=== PATIENT | female | born 1990 | race American Indian/Alaskan Native ===

== ENCOUNTER 2017-04-19 09:32 | Emergency (ER) | payer MEDICAID ==
[2017-04-19 10:11] VITALS: BP 88/54
[2017-04-19] MEDS ORDERED: NACL 0.9% 1000 ML 1,000 ML IV ONE (10:11)
[2017-04-19] MEDS ORDERED: NACL 0.9% 1000 ML 1,000 ML ONE (10:17)
--- NOTE | 2017-04-19 10:37 | Emergency Department Report ---
HPI - General Chief Complaint: Syncope Time Seen by Provider: 04/19/17 10:19 - HPI HPI: This is a 26-year-old -Malag[place] female presents to the emergency department via EMS from work with a complaint of some dizziness and falling over and hitting the side of her abdomen, all while she is about 18 weeks . The patient was at work where she is standing on her feet for a long amount of time. She then went to use the bathroom and got very dizzy and fell over and hit the right side of her abdomen on the sink. She did not pass out and denies hitting her head. EMS was called and found the patient to have a lower blood pressure than usual. She did not take anything for her symptoms prior to presentation. She denies any other past medical history. She is on vitamins. 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 Romero. No recent travel or sick contacts at home. ED Past Medical Hx - Past Medical History Previous Medical History?: Yes Hx Psychiatric Treatment: Yes (bipolar) Additional medical history: approx 18 weeks gest - Surgical History Past Surgical History?: No - Social History Smoking Status: Never Smoker Substance Use Type: None, Alcohol ED Review of Systems ROS: Stated complaint: LIGHT HEADED Other details as noted in HPI Comment: All other systems reviewed and negative Constitutional: denies: chills, fever Eyes: denies: eye pain, eye discharge, vision change ENT: denies: ear pain, throat pain Respiratory: denies: cough, shortness of breath, wheezing Cardiovascular: denies: chest pain, palpitations Gastrointestinal: abdominal pain. denies: nausea, vomiting Genitourinary: denies: urgency, dysuria, discharge Musculoskeletal: denies: back pain, arthralgia Skin: denies: rash, lesions Neurological: other (dizziness). denies: headache Physical Exam - Physical Exam Vital Signs: Vital Signs 04/19/17 10:05 Temperature 98.4 F Pulse Rate 83 Respiratory 14 Rate Blood Pressure 88/54 Blood Pressure 88/54 [Left] O2 Sat by Pulse 100 Oximetry Physical Exam: GENERAL: The patient is well-developed well-nourished. HENT: Normocephalic. Atraumatic. Patient has moist mucous membranes. EYES: Extraocular motions are intact. Pupils equal reactive to light bilaterally. No nystagmus. NECK: Supple. Trachea is midline. CHEST/LUNGS: Clear to auscultation. There is no respiratory distress noted. HEART/CARDIOVASCULAR: Regular. There is no tachycardia. There is no gallop rub or murmur. ABDOMEN: Abdomen is soft. There is some mild tenderness palpation to the right upper and lateral abdomen. Gravid uterus is palpable just below the umbilicus. Patient has normal bowel sounds. SKIN: Skin is warm and dry. NEURO: The patient is awake, alert, and oriented. The patient is cooperative. The patient has no focal neurologic deficits. The patient has normal speech. Cranial nerves II through XII grossly intact. MUSCULOSKELETAL: There is no tenderness or deformity. There is no limitation range of motion. There is no evidence of acute injury. Muscle strength 5 out of 5 upper and lower extremity bilaterally. ED Course Vital Signs 04/19/17 10:05 Temperature 98.4 F Pulse Rate 83 Respiratory 14 Rate Blood Pressure 88/54 Blood Pressure 88/54 [Left] O2 Sat by Pulse 100 Oximetry ED Medical Decision Making - Lab Data Result diagrams: 04/19/17 10:25 04/19/17 10:19 - EKG Data -: EKG Interpreted by [facility] EKG shows normal: sinus rhythm, axis, intervals, QRS complexes, ST-T waves Rate: normal - EKG Data When compared to previous EKG there are: previous EKG unavailable Interpretation: normal EKG - Radiology Data Radiology results: report reviewed Procedure(s): US OB >= 14 weeks Fetus Accession Number(s): [id number] cc: SARAI CATHERINE DO Gestation: Single Position: Cephalic Placenta: Posterior Placental Grade: 0 Heart Rate: 147 BPM Cervical length: 3.8 cm (Normal > 3 cm) It is too early for a anatomical survey BPD: 3.8 cm = 17 w 5 d HC: 13.8 cm = 17 w 2 d AC: 11.8 cm = 17 w 4 d FL: 2.3 cm = 17 w 0 d HC/AC Ratio: 1.17 Cephalic Index: 83.9 Estimated Weight: 188 grams LMP: 12/19/16 Clinical age = 17 w 2 d EDC: 09/25/17 US Gest. Age = 17 w 3 d EDC: 09/24/17 No evidence of abruption. Transcribed By: PTP Dictated By: DESTINEY EUCEDA MD Electronically Authenticated By: DESTINEY EUCEDA MD Signed Date/Time: 04/19/17 1325 Abdominal sonogram: History: Status post trauma abdominal pain. Findings: The normal aorta. Normal liver. Gallbladder wall thickness 1.8 mm. Common bile duct diameter 4 mm. No intrahepatic duct dilatation. Right kidney 10.8 x 4.3 x 4.9 cm. Cortical thickness 1.5 cm. Left kidney 12.1 x 5.4 x 5.2 cm. Cortical thickness 1.2 cm. Spleen is normal and measures 9.5 cm. Pancreas obscured by bowel gas. Impression: Essentially negative sonogram of the visualized portion the abdomen as detailed above. Transcribed By: PTP Dictated By: DESTINEY EUCEDA MD Electronically Authenticated By: DESTINEY EUCEDA MD Signed Date/Time: 04/19/17 1320 - Medical Decision Making 26-year-old female who is presents after having a episode of dizziness or lightheadedness that caused her to fall and hit her abdomen on a bathroom sink. Ultrasound shows a live intrauterine without any complications or signs of placental abnormalities. A generalized abdominal ultrasound was also done that did not show any intra-abdominal bleeding or any other acute processes. On labs, the patient has some hypokalemia with a potassium of 3.1 that was replaced with potassium chloride. Otherwise there was not any signs of infection in the blood or urine, glucose abnormalities, renal insufficiency, signs of significant dehydration and the patient has normal thyroid function. She was given 1.5 L of IV fluid resuscitation. She was reevaluated multiple times for multiple hours and says she is feeling improved. Blood pressure reached a systolic of 96 and the patient says that she has a history of some borderline low blood pressure general and the patient is a very thin individual. She was seen ambulatory in the emergency department and appeared stable on doing so. She has been encouraged to follow up with both her primary care physician and CONTRACTING EXECUTIVE. She will return to the ER with any worsening of her symptoms or any acute distress. - Differential Diagnosis , miscarriage, abdominal contusion, vertigo, orthostatic hypotensio Critical Care Time: No Critical care attestation.: If time is entered above; I have spent that time in minutes in the direct care of this critically ill patient, excluding procedure time. ED Disposition Clinical Impression: Dizziness, Hypokalemia Qualifiers: Weeks of gestation: 18 weeks Qualified Code(s): Z3A.18 - 18 weeks gestation of Abdominal pain Qualifiers: Abdominal location: unspecified location Qualified Code(s): R10.9 - Unspecified abdominal pain Disposition: TO HOME OR SELFCARE Is pt being admited?: No Condition: Stable Instructions: (ED), Abdominal Pain (ED), Lightheadedness (ED), Dizziness (ED) Additional Instructions: Please follow-up with your primary care physician as well as your CONTRACTING EXECUTIVE. Return to the emergency Department with any worsening of your symptoms or any acute distress. Referrals: LALI ROMERO [Other] - [facility] Forms: Work/School Release Form(ED) Time of Disposition: 14:58
[2017-04-19 10:51] LABS: Alanine Aminotransferase 6 units/L (7-56); Albumin 3.3 g/dL (3.9-5); Albumin/Globulin Ratio 1.1 %; Alkaline Phosphatase 49 units/L (35-129); Anion Gap 15 mmol/L; Blood Urea Nitrogen 6 mg/dL (7-17); Calcium 7.9 mg/dL (8.4-10.2); Carbon Dioxide 22 mmol/L (22-30); Chloride 101.8 mmol/L (98-107); Glucose 78 mg/dL (65-100); Potassium 3.1 mmol/L (3.6-5.0); Sodium 136 mmol/L (137-145); Total Protein 6.2 g/dL (6.3-8.2)
[2017-04-19 10:52] LABS: Basophils % (Auto) 0.3 % (0.0-1.8); Eosinophils % (Auto) 0.1 % (0.0-4.3); Hematocrit 26.2 % (30.3-42.9); Hemoglobin 8.6 gm/dl (10.1-14.3); Mean Corpuscular HGB Conc 33 % (30-34); Mean Corpuscular Hemoglobin 26 pg (28-32); Mean Corpuscular Volume 80 fl (79-97); Platelet Count 155 K/mm3 (140-440); Red Blood Count 3.27 M/mm3 (3.65-5.03); Red Cell Distribution Width 16.1 % (13.2-15.2); White Blood Count 7.3 K/mm3 (4.5-11.0)
[2017-04-19 10:55] LABS: Bacteria,Urine 1+ /HPF (Negative); Bilirubin,Urine NEG (Negative); Blood,Urine NEG (Negative); Ketones,Urine 20 mg/dL (Negative); Leukocyte Esterase,Urine NEG (Negative); Mucus,Urine 1+ /HPF; Nitrite,Urine NEG (Negative); Protein,Urine <15 mg/dL mg/dL (Negative); Urobilinogen,Urine < 2.0 mg/dL (<2.0)
[2017-04-19] MEDS ORDERED: K-DUR PO ONE (10:58)
[2017-04-19] MEDS ORDERED: MORPHINE IV ONE (11:38)
--- NOTE | 2017-04-19 13:24 | Ultrasound Report ---
Abdominal sonogram: History: Status post trauma abdominal pain. Findings: The normal aorta. Normal liver. Gallbladder wall thickness 1.8 mm. Common bile duct diameter 4 mm. No intrahepatic duct dilatation. Right kidney 10.8 x 4.3 x 4.9 cm. Cortical thickness 1.5 cm. Left kidney 12.1 x 5.4 x 5.2 cm. Cortical thickness 1.2 cm. Spleen is normal and measures 9.5 cm. Pancreas obscured by bowel gas. Impression: Essentially negative sonogram of the visualized portion the abdomen as detailed above.
--- NOTE | 2017-04-19 13:29 | Ultrasound Report ---
Gestation: Single Position: Cephalic Placenta: Posterior Placental Grade: 0 Heart Rate: 147 BPM Cervical length: 3.8 cm (Normal > 3 cm) It is too early for a anatomical survey BPD: 3.8 cm = 17 w 5 d HC: 13.8 cm = 17 w 2 d AC: 11.8 cm = 17 w 4 d FL: 2.3 cm = 17 w 0 d HC/AC Ratio: 1.17 Cephalic Index: 83.9 Estimated Weight: 188 grams LMP: 12/19/16 Clinical age = 17 w 2 d EDC: 09/25/17 US Gest. Age = 17 w 3 d EDC: 09/24/17 No evidence of abruption.
[2017-04-19] MEDS ORDERED: NACL 0.9% 500 ML 500 ML IV ONE (14:07)
== END 2017-04-19 15:38 | disposition home or self-care (01) ==
LOC: ED 09:32
DX: O26.892 Other specified pregnancy related conditions, second trimester (principal); R42 Dizziness and giddiness; E87.6 Hypokalemia; Z3A.18 18 weeks gestation of pregnancy; F31.9 Bipolar disorder, unspecified
CPT/HCPCS: 36415; 76700; 76805; 80053; 81001; 84443; 84703; 85025; 93005; 93010; 96360; 99284; J7030; J7040

== ENCOUNTER 2017-07-08 11:02 | Outpatient (CLI) | payer MEDICAID ==
[2017-07-08] MEDS ORDERED: LACTATED RINGERS 500 ML IV ONE (11:28)
[2017-07-08 11:47] VITALS: BP 91/54
--- NOTE | 2017-07-08 14:33 | Ultrasound Report ---
ULTRASOUND BIOPHYSICAL PROFILE: History: well being Technique: Transabdominal ultrasound with Doppler interrogation. 2 - breathing movements 2 - movements 2 - posture and tone 2 - Qualitative amniotic fluid volume 8 - TOTAL SCORE OF POSSIBLE 8 Heart Rate (bpm) 101
--- NOTE | 2017-07-08 15:04 | Ultrasound Report ---
OB ULTRASOUND History well being. Technique: Transabdominal ultrasound with Doppler interrogation. Gestation: Single Position: Cephalic Amniotic Fluid: Normal LITTLE = 16.3 cm Placenta: Posterior, fundal Placental Grade: 1 Heart Rate: 100 BPM Cervical length: 3.4 cm (Normal > 3 cm) NEUROANATOMY VISUALIZED: Choroid Plexus Cisterna Magnum Cerebellum Lateral Ventricle ANATOMY VISUALIZED: Stomach Kidneys Bladder Diaphragm 4 Chamber Heart Heart 3 Vessel Cord Abd. Cord Insert SPINE VISUALIZED: Longitudinal Transverse BPD: 7.3 cm = 29 w 1 d HC: 27.2 cm = 29 w 5 d AC: 24.7 cm = 28 w 6 d FL: 5.4 cm = 28 w 5 d HC/AC Ratio: 1.1 Cephalic Index: 84.6 Estimated Weight: 1312 grams. 46th percentile. Clinical age = 28 w 5 d EDC: 09/25/17 US Gest. Age = 29 w in d EDC: 09/22/17 IMPRESSION: Viable, single intrauterine as described.
== END 2017-07-08 14:20 | disposition home or self-care (01) ==
LOC: TRG 11:02
PROVIDERS: ATTEND Obstetrics & Gynecology
DX: O47.03 False labor before 37 completed weeks of gestation, third trimester (principal); Z3A.29 29 weeks gestation of pregnancy
CPT/HCPCS: 59025; 76805; 76819

== ENCOUNTER 2017-08-13 08:29 | Outpatient (CLI) | payer MEDICAID ==
[2017-08-13] MEDS ORDERED: LACTATED RINGERS 500 ML IV ONE (09:35)
[2017-08-13] MEDS ORDERED: BRETHINE SUB-Q SCH (10:00)
[2017-08-13] MEDS ORDERED: LACTATED RINGERS 1,000 ML IV SCH (10:00)
[2017-08-13 12:50] VITALS: BP 91/55
== END 2017-08-13 13:18 | disposition home or self-care (01) ==
LOC: TRG 08:29
PROVIDERS: ATTEND Obstetrics & Gynecology
DX: O47.03 False labor before 37 completed weeks of gestation, third trimester (principal); Z3A.33 33 weeks gestation of pregnancy
CPT/HCPCS: 59025; 96360; 96361; 96372; J3105; J7120

== ENCOUNTER 2017-09-17 21:45 | Outpatient (CLI) | payer MEDICAID ==
[2017-09-17] MEDS ORDERED: VISTARIL PO PRN (22:34)
[2017-09-17 23:13] VITALS: BP 128/76
== END 2017-09-17 22:45 | disposition home or self-care (01) ==
LOC: TRG 21:45
PROVIDERS: ATTEND Obstetrics & Gynecology
DX: O47.1 False labor at or after 37 completed weeks of gestation (principal); Z3A.38 38 weeks gestation of pregnancy
CPT/HCPCS: 59025; Q0177

== ENCOUNTER 2017-09-19 18:20 | Outpatient (CLI) | payer MEDICAID ==
[2017-09-19 19:42] VITALS: BP 120/80
[2017-09-19] MEDS ORDERED: VISTARIL PO PRN (20:00)
== END 2017-09-19 20:10 | disposition home or self-care (01) ==
LOC: TRG 18:20
PROVIDERS: ATTEND Obstetrics & Gynecology
DX: O47.1 False labor at or after 37 completed weeks of gestation (principal); Z3A.39 39 weeks gestation of pregnancy
CPT/HCPCS: 59025; Q0177

== ENCOUNTER 2017-09-21 09:13 | Outpatient (CLI) | payer MEDICAID ==
[2017-09-21 10:00] VITALS: BP 96/62
[2017-09-21] MEDS ORDERED: VISTARIL PO ONE (10:19)
== END 2017-09-21 11:00 | disposition home or self-care (01) ==
LOC: TRG 09:13
PROVIDERS: ATTEND Obstetrics & Gynecology
DX: O47.1 False labor at or after 37 completed weeks of gestation (principal); Z3A.39 39 weeks gestation of pregnancy
CPT/HCPCS: 59025

== ENCOUNTER 2017-09-29 09:58 | Inpatient (IN) | payer MEDICAID ==
[2017-09-29] MEDS ORDERED: ePHEDrine SULFATE IV PRN ×2 (10:12→11:28)
[2017-09-29] MEDS ORDERED: BRETHINE SUB-Q PRN (10:12)
[2017-09-29] MEDS ORDERED: SUBLIMAZE IV PRN ×2 (10:12→11:00)
[2017-09-29] MEDS ORDERED: ZOFRAN IV PRN (10:12)
[2017-09-29] MEDS ORDERED: MINERAL OIL PO PRN (10:12)
[2017-09-29] MEDS ORDERED: GUAIFENESIN DM SYRUP PO PRN (10:14)
[2017-09-29] MEDS: LACTATED RINGERS 1,000 ML IV SCH ×2 (10:29→13:34)
--- NOTE | 2017-09-29 10:47 | History and Physical Report ---
History of Present Illness Date of examination: 09/29/17 (pt presents by EMS with gross ROM this AM) Date of admission: 09/29/17 10:00 Chief complaint: srom clear fluid this AM EMS called History of present illness: EDC Confirmation: 09/25/2017 Gestational Age: 5 6/7 weeks Past History : 5 Term Births: 3 Premature Births: 0 Living Children: 3 Para: 3 Mult. Births: 0 Prev : 0 Prev. attempt? 0 Aborta: 1 Elect. Ab: 0 Spont. Ab: 1 Ectopics: 0 # 1 Delivery date: 2011 Weeks Gestation: 39 labor: no Delivery type: Anesthesia type: epidural [place] [facility] [place] Sex: Male weight: 5#11 Comments: elevated b/p # 2 Delivery date: 2012 Weeks Gestation: 39 labor: no Delivery type: Anesthesia type: epidural Delivery location: [facility] [place] Sex: Male weight: 6#11 Comments: no complications # 3 Delivery date: 10/2016 Weeks Gestation: 40 labor: no Delivery type: Anesthesia type: none [place] [facility] [place]: Male weight: 6#10 Comments: no complications Past Medical History: Bipolar Disease - sees practive on [address] (doesn't know and names), on Zoloft, trazodone and seroquel prior to Past Surgical History: Negative Past Surgical History Past Medical History 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 of genital herpes: no Partner hx. of genital herpes: no Rash, Viral, or Febrile illness since last LMP? no Varicella/Chicken Pox Status: Previous Disease Genetic History Congenital Heart Defect: Mom: no Dad: no Nito Disease: Mom: no Dad: no Thalassemia Mom: no Dad: no Neural Tube Defect Mom: no Dad: no Down's Syndrome Mom: no Dad: no Rob-Sachs Mom: no Dad: no Sickle Cell Disease/Trait Mom: no Dad: no Hemophilia Mom: no Dad: no Muscular Dystrophy Mom: no Dad: no Cystic Fibrosis Mom: no Dad: no [place] Chorea Mom: no Dad: no Mental Retardation Mom: no Dad: no Fragile X Mom: no Dad: no Other Genetic/Chromosomal Disorder Mom: no Dad: no Child w/other defect Mom: no Dad: no Enviromental Exposures Xray Exposure: no Medication, drug, or alcohol use since LMP: yes Chemical/Other Exposure: no Exposure to Cat Liter: no Hx of Parvovirus (Fifth Disease): no Occupational Exposure to Children: none Comments: Zoloft, trazodone, seroquel Active Medications (reviewed today): None Current Allergies (reviewed today): No known allergies Laboratory Results Routine Urinalysis Leukocytes: negative Nitrite: negative Urobilinogen: negative Protein: Negative Blood: negative Ketone: negative Bilirubin: negative Glucose: Negative Urine HCG: positive Review of Systems General Denies fever, chills, sweats, anorexia, fatigue, weakness, malaise, weight loss and sleep disorder. Denies nausea, vomiting, headache, swelling of legs, abdominal pain, vaginal discharge, vaginal bleeding and contractions. Denies vaginal discharge, incontinence, dysuria, hematuria, urinary frequency, amenorrhea, menorrhagia, abnormal vaginal bleeding, pelvic pain, genital sores, decreased libido, painful periods, painful sex, urinary urgency, hot flashes, vaginal dryness, vaginal itching and vaginal odor. CV Denies chest pains, palpitations, syncope, dyspnea on exertion, orthopnea, PND and peripheral edema. Resp Denies cough, dyspnea at rest, excessive sputum, hemoptysis, wheezing and pleurisy. GI Denies nausea, vomiting, diarrhea, constipation, change in bowel habits, abdominal pain, melena, hematochezia, jaundice, gas/bloating, indigestion/ heartburn, dysphagia and odynophagia. Endo Denies cold intolerance, heat intolerance, polydipsia, polyphagia, polyuria and unusual weight change. Breast Denies left breast lump, right breast lump, nipple discharge, bloody discharge from nipple, breast pain, abnormal mammogram and breast enlargement. MS Denies back pain, joint pain, joint swelling, muscle cramps, muscle weakness, stiffness, arthritis, sciatica, restless legs, leg pain at night and leg pain with exertion. Derm Denies rash, itching, dryness and suspicious lesions. Neuro Denies paralysis, paresthesias, headache, seizures, tremors, vertigo, transient blindness, frequent falls, frequent headaches and difficulty walking. Psych Denies depression, anxiety, irritability and mood swings. Eyes Denies blurring, diplopia, irritation, discharge, vision loss, eye pain and photophobia. ENT Denies earache, ear discharge, tinnitus, decreased hearing, nasal congestion, nosebleeds, sore throat and hoarseness. Allergy Denies urticaria, allergic rash, hay fever and recurrent infections. Heme Denies abnormal bruising, bleeding and enlarged lymph nodes. PHYSICAL EXAM HEENT: PERRLA, normal conjunctiva, external nose and nasal mucosa normal, oropharynx clear Neck/Thyroid: supple, thyroid normal Skin no significant abnormal lesions or rashes Chest: respiratory effort normal, clear to auscultation Breasts: normal without skin changes or masses CV: regular, normal S1-S2, no murmur, no rub, no gallop Abdomen: normal bowel sounds, soft, nontender, no HSM Musculoskeletal: grossly normal ROM in joints, no joint tenderness or muscle weakness Neuro: grossly normal DTRs, sensation, strength, cranial nerves Extremities: no clubbing, cyanosis, or edema PRACTICE CONSULTANT Exams Vulva/Vagina: No lesions, normal BUS, normal rugae Cervix: No lesions; no cervical motion tenderness Uterus: normal size and position, midline, mobile Fundal Ht: sono FHT: - Adnexae: no masses or tenderness Rectovaginal: no masses or tenderness Past History - Obstetrical History Expected Date of Delivery: 09/25/17 Actual Gestation: 40 Week(s) 4 Day(s) : 5 Para: 3 Hx # Term Pregnancies: 3 Number of Pregnancies: 0 Spontaneous Abortions: 1 Induced : 0 Number of Living Children: 3 Medications and Allergies Allergies Allergy/AdvReac Type Severity Reaction Status Date / Time No Known Allergies Allergy Verified 07/08/17 11:27 Home Medications Medication Instructions Recorded Confirmed Last Taken Type No Known Home Medications [No 07/08/17 08/13/17 Unknown History Reported Home Medications] Active Meds: Active Medications Ephedrine Sulfate (Ephedrine Sulfate) 10 mg IV Q2M PRN PRN Reason: Hypotension Fentanyl (Sublimaze) 100 mcg IV Q2H PRN PRN Reason: Labor Pain Guaifenesin (Guaifenesin Dm Syrup) 20 ml PO Q4H PRN PRN Reason: Cough Ampicillin Sodium (Polycillin/Ns 1 Gm/50 Ml) 1 gm in 50 mls @ 100 mls/hr IV Q4H BETHEL PRN Reason: Protocol Ampicillin Sodium (Polycillin/Ns 2 Gm/100 Ml) 2 gm in 100 mls @ 100 mls/hr IV ONCE ONE PRN Reason: Protocol Stop: 09/29/17 11:59 Last Admin: 09/29/17 10:30 Dose: 100 mls/hr Lactated Ringer's (Lactated Ringers) 1,000 mls @ 125 mls/hr IV DIRECT BETHEL Last Admin: 09/29/17 10:29 Dose: 125 mls/hr Oxytocin/Sodium Chloride (Pitocin/Ns 20 Unit/1000ml Drip) 20 units in 1,000 mls @ 125 mls/hr IV DIRECT BETHEL Oxytocin/Sodium Chloride (Pitocin/Ns 30 Unit/500ml) 30 units in 500 mls @ 4 mls /hr IV TITR BETHEL PRN Reason: Protocol Lidocaine (Xylocaine 2%) 20 ml INFILTRATI ONCE ONE Stop: 09/29/17 11:01 Mineral Oil (Mineral Oil) 30 ml PO QHS PRN PRN Reason: Constipation Ondansetron HCl (Zofran) 4 mg IV Q8H PRN PRN Reason: Nausea And Vomiting Terbutaline Sulfate (Brethine) 0.25 mg SUB-Q ONCE PRN PRN Reason: Hyperstimulation/Hypertonicity - Physical Exam Breasts: Positive: deferred Cardiovascular: Regular rate, Normal S1, Normal S2 Lungs: Positive: Clear to auscultation, Normal air movement Abdomen: Positive: normal appearance, soft, normal bowel sounds. Negative: distention, tenderness Genitourinary (Female): Positive: normal external genitalia, normal perenium Vulva: both: normal Vagina: Positive: normal moisture. Negative: discharge Cervix: Negative: lesion, discharge Uterus: Positive: normal size, normal contour Adnexa: both: normal Anus/Rectum: Positive: normal perianal skin, heme negative. Negative: rectal mass, hemorrhoids Extremities: Positive: normal Deep Tendon Reflex Grade: Normal +2 - Obstetrical FHR: category 1 Uterine Contraction Monitor Mode: External Cervical Dilatation: 6 (clear fluid) Cervical Effacement Percentage: 70 station: -1 Uterine Contraction Pattern: Regular Uterine Tone Measurement Phase: Resting Uterine Contraction Intensity: Moderate Results All other labs normal. Strep Gp B SALOMON [A] Positive HBsAg Screen Negative Negative *1 Rubella Antibodies, IgG 2.43 index Immune >0.99 *2 Non-immune <0.90 Equivocal 0.90 - 0.99 Immune >0.99 ABO Grouping B *3 Rh Factor Positive *4 Please note: Prior records for this patient's ABO / Rh type are not available for additional verification. Antibody Screen Negative Negative *5 RPR Non Reactive Non Reactive *6 WBC 5.9 x10E3/uL 3.4-10.8 *7 RBC 3.96 x10E6/uL 3.77-5.28 *8 Hemoglobin [L] 10.6 g/dL 11.1-15.9 *9 Hematocrit [L] 33.5 % 34.0-46.6 *10 MCV 85 fL 79-97 *11 MCH 26.8 pg 26.6-33.0 *12 MCHC 31.6 g/dL 31.5-35.7 *13 RDW 15.1 % 12.3-15.4 *14 Platelets 199 x10E3/uL 150-379 *15 Neutrophils 65 % *16 Lymphs 25 % *17 Monocytes 9 % *18 Eos 1 % *19 Basos 0 % *20 ! Immature Cells <No Reported Value> *21 Neutrophils (Absolute) 3.8 x10E3/uL 1.4-7.0 *22 Lymphs (Absolute) 1.5 x10E3/uL 0.7-3.1 *23 Monocytes(Absolute) 0.5 x10E3/uL 0.1-0.9 *24 Eos (Absolute) 0.0 x10E3/uL 0.0-0.4 *25 Baso (Absolute) 0.0 x10E3/uL 0.0-0.2 *26 ! Immature Granulocytes 0 % *27 ! Immature Grans (Abs) 0.0 x10E3/uL 0.0-0.1 *28 ! NRBC <No Reported Value> *29 Hematology Comments: <No Reported Value> *30 Tests: (2) SMN1 Copy Number Analysis ([id number]) ! Genetic Counselor: Not applicable *31 ! Client Specimen ID: Not applicable *32 ! Specimen Type: SPRCS *33 Peripheral Blood ! Specimen(s) Received: SPRCS *34 1 - Yellow (ACD) 10 ml round bottom tube(s) ! Clinical Data: SPRCS *35 Not Provided ! Ethnicity: SPRCS *36 Not Provided ! SMA Results: SPRCS *37 SMN1 copy number: 2 (Reduced Carrier Risk) ! SMA Interpretation: Note *38 This individual has an SMN1 copy number of two. This result reduces but does not eliminate the risk to be a carrier of SMA. Information regarding clinical indication may provide a more detailed interpretation. Tests: (3) Cystic Fibrosis Profile (135657) ! CF, Screen Comment: *45 RESULTS: Negative for 32 mutations analyzed Tests: (4) HB Solu + Rflx Frac (585078) Hemoglobin (Hgb) Solubility Negative Negative *47 Tests: (5) Panel 194971 (506113) HIV Screen 4th Generation wRfx Non Reactive Non Reactive *48 Tests: (6) HCV Ab w/Rflx to Verification ([id number]) ! HCV Ab 0.2 s/co ratio 0.0-0.9 *49 Tests: (7) Comment: ([id number]) ! Comment: SPRCS *50 Non reactive HCV antibody screen is consistent with no HCV infection, unless recent infection is suspected or other evidence exists to indicate HCV infection. Tests: (8) Urine Culture, Routine ([id number]) Urine Culture, Routine Final report *51 Tests: (9) Result ([id number]) ! Result 1 "Result Below..." *52 RESULT: Lactobacillus species 25,000-50,000 colony forming units per mL Susceptibility not normally performed on this organism. Assessment and Plan - Patient Problems (1) Group B Streptococcus carrier state affecting Onset Date: ~09/29/17 Current Visit: Yes Status: Acute Plan to address problem: Ampicillin started per protocol (2) Spontaneous rupture of membranes Current Visit: Yes Status: Acute Plan to address problem: 26yo @ 40 wks with SROM 6cm dilated on arrival. GBS+ Orders in EMR Anticipate delivery
[2017-09-29] MEDS ORDERED: PITOCin/NS 30 UNIT/500ML 30 UNITS/500 ML BAG IV SCH (11:00)
[2017-09-29] MEDS ORDERED: PITOCin/NS 20 UNIT/1000ML DRIP 20 UNITS/1,000 ML BAG IV SCH (11:00)
[2017-09-29] MEDS ORDERED: POLYCILLIN/NS 2 GM/100 ML 2 GM/100 ML BAG IV ONE (11:00)
[2017-09-29] MEDS ORDERED: XYLOCAINE 2% INFILTRATI ONE (11:00)
[2017-09-29 11:04] LABS: Hematocrit 20.7 % (30.3-42.9); Hemoglobin 6.3 gm/dl (10.1-14.3); Mean Corpuscular HGB Conc 31 % (30-34); Platelet Count 131 K/mm3 (140-440); Red Blood Count 2.98 M/mm3 (3.65-5.03); Red Cell Distribution Width 17.6 % (13.2-15.2)
[2017-09-29 11:09] LABS: Mean Corpuscular Hemoglobin 21 pg (28-32); Mean Corpuscular Volume 69 fl (79-97)
[2017-09-29] MEDS ORDERED: NARCAN 2 MG/2 ML IV PRN (11:28)
[2017-09-29] MEDS ORDERED: fentaNYL-BUPIV 2 MCG/ML-0.125% 200 MCG/100 ML BAG EPIDURAL SCH (12:00)
--- NOTE | 2017-09-29 12:32 | Progress Note ---
Assessment and Plan Comfortable with epidural SVE 7,100,-1 Re-eval as needed - Patient Problems (1) Group B Streptococcus carrier state affecting Onset Date: ~09/29/17 Current Visit: Yes Status: Acute (2) Spontaneous rupture of membranes Current Visit: Yes Status: Acute Subjective - Subjective Date of service: 09/29/17 (comfortable with epidural) Principal diagnosis: IUP @ 40 weeks with SROM Interval history: EDC Confirmation: 09/25/2017 Gestational Age: 5 6/7 weeks Past History : 5 Term Births: 3 Premature Births: 0 Living Children: 3 Para: 3 Mult. Births: 0 Prev : 0 Prev. attempt? 0 Aborta: 1 Elect. Ab: 0 Spont. Ab: 1 Ectopics: 0 # 1 Delivery date: 2011 Weeks Gestation: 39 labor: no Delivery type: Anesthesia type: epidural Delivery location: [facility] [place] Infant Sex: Male weight: 5#11 Comments: elevated b/p # 2 Delivery date: 2012 Weeks Gestation: 39 labor: no Delivery type: Anesthesia type: epidural Delivery location: [facility] [place] Infant Sex: Male weight: 6#11 Comments: no complications # 3 Delivery date: 10/2016 Weeks Gestation: 40 labor: no Delivery type: Anesthesia type: none Delivery location: [facility] [place] Infant Sex: Male weight: 6#10 Comments: no complications Past Medical History: Bipolar Disease - sees practive on [address] (doesn't know and names), on Zoloft, trazodone and seroquel prior to Past Surgical History: Negative Past Surgical History Past Medical History 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 of genital herpes: no Partner hx. of genital herpes: no Rash, Viral, or Febrile illness since last LMP? no Varicella/Chicken Pox Status: Previous Disease Genetic History Congenital Heart Defect: Mom: no Dad: no Nito Disease: Mom: no Dad: no Thalassemia Mom: no Dad: no Neural Tube Defect Mom: no Dad: no Down's Syndrome Mom: no Dad: no Rob-Sachs Mom: no Dad: no Sickle Cell Disease/Trait Mom: no Dad: no Hemophilia Mom: no Dad: no Muscular Dystrophy Mom: no Dad: no Cystic Fibrosis Mom: no Dad: no [place] Chorea Mom: no Dad: no Mental Retardation Mom: no Dad: no Fragile X Mom: no Dad: no Other Genetic/Chromosomal Disorder Mom: no Dad: no Child w/other defect Mom: no Dad: no Enviromental Exposures Xray Exposure: no Medication, drug, or alcohol use since LMP: yes Chemical/Other Exposure: no Exposure to Cat Liter: no Hx of Parvovirus (Fifth Disease): no Occupational Exposure to Children: none Comments: Zoloft, trazodone, seroquel Active Medications (reviewed today): None Current Allergies (reviewed today): No known allergies Laboratory Results Routine Urinalysis Leukocytes: negative Nitrite: negative Urobilinogen: negative Protein: Negative Blood: negative Ketone: negative Bilirubin: negative Glucose: Negative Urine HCG: positive Review of Systems General Denies fever, chills, sweats, anorexia, fatigue, weakness, malaise, weight loss and sleep disorder. Denies nausea, vomiting, headache, swelling of legs, abdominal pain, vaginal discharge, vaginal bleeding and contractions. Denies vaginal discharge, incontinence, dysuria, hematuria, urinary frequency, amenorrhea, menorrhagia, abnormal vaginal bleeding, pelvic pain, genital sores, decreased libido, painful periods, painful sex, urinary urgency, hot flashes, vaginal dryness, vaginal itching and vaginal odor. CV Denies chest pains, palpitations, syncope, dyspnea on exertion, orthopnea, PND and peripheral edema. Resp Denies cough, dyspnea at rest, excessive sputum, hemoptysis, wheezing and pleurisy. GI Denies nausea, vomiting, diarrhea, constipation, change in bowel habits, abdominal pain, melena, hematochezia, jaundice, gas/bloating, indigestion/ heartburn, dysphagia and odynophagia. Endo Denies cold intolerance, heat intolerance, polydipsia, polyphagia, polyuria and unusual weight change. Breast Denies left breast lump, right breast lump, nipple discharge, bloody discharge from nipple, breast pain, abnormal mammogram and breast enlargement. MS Denies back pain, joint pain, joint swelling, muscle cramps, muscle weakness, stiffness, arthritis, sciatica, restless legs, leg pain at night and leg pain with exertion. Derm Denies rash, itching, dryness and suspicious lesions. Neuro Denies paralysis, paresthesias, headache, seizures, tremors, vertigo, transient blindness, frequent falls, frequent headaches and difficulty walking. Psych Denies depression, anxiety, irritability and mood swings. Eyes Denies blurring, diplopia, irritation, discharge, vision loss, eye pain and photophobia. ENT Denies earache, ear discharge, tinnitus, decreased hearing, nasal congestion, nosebleeds, sore throat and hoarseness. Allergy Denies urticaria, allergic rash, hay fever and recurrent infections. Heme Denies abnormal bruising, bleeding and enlarged lymph nodes. 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 Vulva/Vagina: No lesions, normal BUS, normal rugae Cervix: No lesions; no cervical motion tenderness Uterus: normal size and position, midline, mobile Fundal Ht: sono FHT: - Adnexae: no masses or tenderness Rectovaginal: no masses or tenderness Patient reports: movement normal Objective - Vital Signs Vital Signs: Vital Signs - 12hr 09/29/17 09/29/17 09/29/17 10:58 11:14 11:28 Pulse Rate 92 H 84 90 Blood Pressure 103/76 112/77 122/81 O2 Sat by Pulse Oximetry 09/29/17 09/29/17 09/29/17 11:44 11:45 11:50 Pulse Rate 101 H 89 97 H Blood Pressure 115/70 O2 Sat by Pulse 99 99 Oximetry 09/29/17 09/29/17 09/29/17 11:55 11:59 12:00 Pulse Rate 83 102 H 99 H Blood Pressure 124/81 O2 Sat by Pulse 99 99 Oximetry 09/29/17 09/29/17 09/29/17 12:05 12:07 12:09 Pulse Rate 115 H 105 H 112 H Blood Pressure 117/71 110/67 109/65 O2 Sat by Pulse 96 Oximetry 09/29/17 09/29/17 09/29/17 12:10 12:11 12:13 Pulse Rate 122 H 96 H 99 H Blood Pressure 106/63 106/64 O2 Sat by Pulse 98 Oximetry 09/29/17 09/29/17 09/29/17 12:15 12:17 12:19 Pulse Rate 96 H 89 84 Blood Pressure 103/64 102/63 106/68 O2 Sat by Pulse 98 Oximetry 09/29/17 09/29/17 09/29/17 12:20 12:21 12:23 Pulse Rate 91 H 80 89 Blood Pressure 108/70 103/68 O2 Sat by Pulse 98 Oximetry 09/29/17 09/29/17 09/29/17 12:25 12:28 12:29 Pulse Rate 85 88 83 Blood Pressure 92/57 114/71 105/72 O2 Sat by Pulse 100 Oximetry 09/29/17 09/29/17 12:30 12:31 Pulse Rate 82 83 Blood Pressure 96/56 O2 Sat by Pulse 97 Oximetry - Exam Breasts: deferred Cardiovascular: Regular rate Lungs: Clear to auscultation Abdomen: Present: normal appearance, normal bowel sounds Uterus: Present: normal FHR: category 1 Uterine Contraction Monitor Mode: External Cervical Dilatation: 7 Cervical Effacement Percentage: 100 station: -1 Uterine Contraction Pattern: Irregular Uterine Tone Measurement Phase: Resting Uterine Contraction Intensity: Moderate Extremities: normal Deep Tendon Reflex Grade: Normal +2 - Labs Labs: Abnormal Labs 09/29/17 10:40 RBC 2.98 L Hgb 6.3 L Hct 20.7 L MCV 69 L MCH 21 L RDW 17.6 H Plt Count 131 L Laboratory Results - last 24 hr 09/29/17 09/29/17 09/29/17 10:20 10:40 10:40 WBC 8.1 RBC 2.98 L Hgb 6.3 L Hct 20.7 L MCV 69 L MCH 21 L MCHC 31 RDW 17.6 H Plt Count 131 L RPR Nonreactive Blood Type B POSITIVE Antibody Screen Negative
[2017-09-29] MEDS: AMPICILLIN/NS 1 GM/50 ML 1 GM/50 ML BAG IV SCH (13:53)
--- NOTE | 2017-09-29 13:58 | Progress Note ---
Assessment and Plan Pt c/o pain Epidural bolused SVE 9,100,-1 Pit off, fluid bolus, position chg, O2 via face mask Re-eval as needed Anticipate delivery - Patient Problems (1) Group B Streptococcus carrier state affecting Onset Date: ~09/29/17 Current Visit: Yes Status: Acute (2) Spontaneous rupture of membranes Current Visit: Yes Status: Acute Subjective - Subjective Date of service: 09/29/17 (deep variables noted Corrected with position chgand O2 via mask) Principal diagnosis: IUP @ 40 weeks with SROM Interval history: EDC Confirmation: 09/25/2017 Gestational Age: 5 6/7 weeks Past History : 5 Term Births: 3 Premature Births: 0 Living Children: 3 Para: 3 Mult. Births: 0 Prev : 0 Prev. attempt? 0 Aborta: 1 Elect. Ab: 0 Spont. Ab: 1 Ectopics: 0 # 1 Delivery date: 2011 Weeks Gestation: 39 labor: no Delivery type: Anesthesia type: epidural Delivery location: [facility] [place] Sex: Male weight: 5#11 Comments: elevated b/p # 2 Delivery date: 2012 Weeks Gestation: 39 labor: no Delivery type: Anesthesia type: epidural [place] [facility] [place] [facility] [place] Sex: Male weight: 6#11 Comments: no complications # 3 Delivery date: 10/2016 Weeks Gestation: 40 labor: no Delivery type: Anesthesia type: none Delivery location: [facility] [place] Sex: Male weight: 6#10 Comments: no complications Past Medical History: Bipolar Disease - sees practive on [address] (doesn't know and names), on Zoloft, trazodone and seroquel prior to Past Surgical History: Negative Past Surgical History Past Medical History 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 of genital herpes: no Partner hx. of genital herpes: no Rash, Viral, or Febrile illness since last LMP? no Varicella/Chicken Pox Status: Previous Disease Genetic History Congenital Heart Defect: Mom: no Dad: no Nito Disease: Mom: no Dad: no Thalassemia Mom: no Dad: no Neural Tube Defect Mom: no Dad: no Down's Syndrome Mom: no Dad: no Rob-Sachs Mom: no Dad: no Sickle Cell Disease/Trait Mom: no Dad: no Hemophilia Mom: no Dad: no Muscular Dystrophy Mom: no Dad: no Cystic Fibrosis Mom: no Dad: no Esmeralda Chorea Mom: no Dad: no Mental Retardation Mom: no Dad: no Fragile X Mom: no Dad: no Other Genetic/Chromosomal Disorder Mom: no Dad: no Child w/other defect Mom: no Dad: no Enviromental Exposures Xray Exposure: no Medication, drug, or alcohol use since LMP: yes Chemical/Other Exposure: no Exposure to Cat Liter: no Hx of Parvovirus (Fifth Disease): no Occupational Exposure to Children: none Comments: Zoloft, trazodone, seroquel Active Medications (reviewed today): None Current Allergies (reviewed today): No known allergies Laboratory Results Routine Urinalysis Leukocytes: negative Nitrite: negative Urobilinogen: negative Protein: Negative Blood: negative Ketone: negative Bilirubin: negative Glucose: Negative Urine HCG: positive Review of Systems General Denies fever, chills, sweats, anorexia, fatigue, weakness, malaise, weight loss and sleep disorder. Denies nausea, vomiting, headache, swelling of legs, abdominal pain, vaginal discharge, vaginal bleeding and contractions. Denies vaginal discharge, incontinence, dysuria, hematuria, urinary frequency, amenorrhea, menorrhagia, abnormal vaginal bleeding, pelvic pain, genital sores, decreased libido, painful periods, painful sex, urinary urgency, hot flashes, vaginal dryness, vaginal itching and vaginal odor. CV Denies chest pains, palpitations, syncope, dyspnea on exertion, orthopnea, PND and peripheral edema. Resp Denies cough, dyspnea at rest, excessive sputum, hemoptysis, wheezing and pleurisy. GI Denies nausea, vomiting, diarrhea, constipation, change in bowel habits, abdominal pain, melena, hematochezia, jaundice, gas/bloating, indigestion/ heartburn, dysphagia and odynophagia. Endo Denies cold intolerance, heat intolerance, polydipsia, polyphagia, polyuria and unusual weight change. Breast Denies left breast lump, right breast lump, nipple discharge, bloody discharge from nipple, breast pain, abnormal mammogram and breast enlargement. MS Denies back pain, joint pain, joint swelling, muscle cramps, muscle weakness, stiffness, arthritis, sciatica, restless legs, leg pain at night and leg pain with exertion. Derm Denies rash, itching, dryness and suspicious lesions. Neuro Denies paralysis, paresthesias, headache, seizures, tremors, vertigo, transient blindness, frequent falls, frequent headaches and difficulty walking. Psych Denies depression, anxiety, irritability and mood swings. Eyes Denies blurring, diplopia, irritation, discharge, vision loss, eye pain and photophobia. ENT Denies earache, ear discharge, tinnitus, decreased hearing, nasal congestion, nosebleeds, sore throat and hoarseness. Allergy Denies urticaria, allergic rash, hay fever and recurrent infections. Heme Denies abnormal bruising, bleeding and enlarged lymph nodes. 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/Vagina: No lesions, normal BUS, normal rugae Cervix: No lesions; no cervical motion tenderness Uterus: normal size and position, midline, mobile Fundal Ht: sono FHT: - Adnexae: no masses or tenderness Rectovaginal: no masses or tenderness Patient reports: movement normal Objective - Vital Signs Vital Signs: Vital Signs - 12hr 09/29/17 09/29/17 09/29/17 10:58 11:14 11:28 Pulse Rate 92 H 84 90 Blood Pressure 103/76 112/77 122/81 O2 Sat by Pulse Oximetry 09/29/17 09/29/17 09/29/17 11:44 11:45 11:50 Pulse Rate 101 H 89 97 H Blood Pressure 115/70 O2 Sat by Pulse 99 99 Oximetry 09/29/17 09/29/17 09/29/17 11:55 11:59 12:00 Pulse Rate 83 102 H 99 H Blood Pressure 124/81 O2 Sat by Pulse 99 99 Oximetry 09/29/17 09/29/17 09/29/17 12:05 12:07 12:09 Pulse Rate 115 H 105 H 112 H Blood Pressure 117/71 110/67 109/65 O2 Sat by Pulse 96 Oximetry 09/29/17 09/29/17 09/29/17 12:10 12:11 12:13 Pulse Rate 122 H 96 H 99 H Blood Pressure 106/63 106/64 O2 Sat by Pulse 98 Oximetry 09/29/17 09/29/17 09/29/17 12:15 12:17 12:19 Pulse Rate 96 H 89 84 Blood Pressure 103/64 102/63 106/68 O2 Sat by Pulse 98 Oximetry 09/29/17 09/29/17 09/29/17 12:20 12:21 12:23 Pulse Rate 91 H 80 89 Blood Pressure 108/70 103/68 O2 Sat by Pulse 98 Oximetry 09/29/17 09/29/17 09/29/17 12:25 12:28 12:29 Pulse Rate 85 88 83 Blood Pressure 92/57 114/71 105/72 O2 Sat by Pulse 100 Oximetry 09/29/17 09/29/17 09/29/17 12:30 12:31 12:32 Pulse Rate 82 83 45 L Blood Pressure 96/56 O2 Sat by Pulse 97 80 L Oximetry 09/29/17 09/29/17 09/29/17 12:34 12:35 12:37 Pulse Rate 75 81 75 Blood Pressure 103/67 103/69 106/68 O2 Sat by Pulse 99 Oximetry 09/29/17 09/29/17 09/29/17 12:39 12:41 12:42 Pulse Rate 90 77 75 Blood Pressure 106/64 109/70 O2 Sat by Pulse 99 Oximetry 09/29/17 09/29/17 09/29/17 12:46 12:47 12:52 Pulse Rate 72 73 75 Blood Pressure 94/50 O2 Sat by Pulse 99 99 Oximetry 09/29/17 09/29/17 09/29/17 12:57 13:01 13:02 Pulse Rate 76 70 82 Blood Pressure 86/52 O2 Sat by Pulse 99 70 L 100 Oximetry 09/29/17 09/29/17 09/29/17 13:07 13:12 13:17 Pulse Rate 73 81 71 Blood Pressure 91/58 O2 Sat by Pulse 98 98 97 Oximetry 09/29/17 09/29/17 09/29/17 13:22 13:27 13:32 Pulse Rate 70 73 85 Blood Pressure 90/56 O2 Sat by Pulse 99 99 Oximetry 09/29/17 09/29/17 09/29/17 13:47 13:51 13:52 Pulse Rate 78 85 69 Blood Pressure 99/64 100/59 102/60 O2 Sat by Pulse Oximetry - Exam Breasts: deferred Cardiovascular: Regular rate Lungs: Clear to auscultation Abdomen: Present: normal appearance, soft. Absent: distention, tenderness Uterus: Present: normal FHR: auscultation normal, category 2 Uterine Contraction Monitor Mode: Internal Cervical Dilatation: 9 Cervical Effacement Percentage: 100 station: -1 Uterine Contraction Pattern: Regular Uterine Contraction Intensity: Moderate Extremities: normal Deep Tendon Reflex Grade: Normal +2 - Labs Labs: Abnormal Labs 09/29/17 10:40 RBC 2.98 L Hgb 6.3 L Hct 20.7 L MCV 69 L MCH 21 L RDW 17.6 H Plt Count 131 L Laboratory Results - last 24 hr 09/29/17 09/29/17 09/29/17 10:20 10:40 10:40 WBC 8.1 RBC 2.98 L Hgb 6.3 L Hct 20.7 L MCV 69 L MCH 21 L MCHC 31 RDW 17.6 H Plt Count 131 L RPR Nonreactive Blood Type B POSITIVE Antibody Screen Negative
[2017-09-29] MEDS ORDERED: LANSINOH TP PRN (16:20)
[2017-09-29] MEDS ORDERED: BENADRYL PO PRN (16:20)
[2017-09-29] MEDS ORDERED: DULCOLAX PR PRN (16:20)
[2017-09-29] MEDS ORDERED: TUCKS PAD TP PRN (16:20)
[2017-09-29] MEDS ORDERED: TORADOL IV PRN (16:20)
[2017-09-29] MEDS ORDERED: MILK OF MAGNESIA PO PRN (16:20)
[2017-09-29] MEDS ORDERED: PHENERGAN PO PRN (16:20)
[2017-09-29] MEDS ORDERED: TYLENOL PO PRN (16:20)
--- NOTE | 2017-09-29 16:31 | Procedure Note ---
OB Delivery Note - Delivery Date of Delivery: 09/29/17 Mother'S Helper: FLORINDA JARRETT Estimated blood loss: 300cc - Vaginal Delivery presentation: vertex Delivery position: OA Intrapartum events: PROM->1hr before delivery, other(please specify) (GBS+) Delivery induction: none Delivery augmentation: pitocin Delivery monitor: internal FHT, internal uterine Route of delivery: Delivery placenta: spontaneous Delivery cord: 3 umbilical vessels Episiotomy: none Delivery laceration: none Anesthesia: epidural Delivery comments: live born male over intact perineum Baby floppy Responded well to drying, stim, and bulb suction Placenta and membrane del complete and intact, 3 vessel cord. Pit IVFs 8/9, EBL 300, wgt 7-6 Mom and baby remain LDR stable - Infant A at 1 minute: 8 at 5 minutes: 9 Gender: Male (wgt 7-6)
[2017-09-29] MEDS ORDERED: SODIUM CHLORIDE FLUSH SYRINGE 10 ML IV NR (17:00)
[2017-09-29] MEDS: MOTRIN PO SCH ×2 (19:07→23:38)
[2017-09-29] MEDS: SENOKOT S PO SCH (23:26)
[2017-09-30] MEDS: AMPICILLIN/NS 1 GM/50 ML 1 GM/50 ML BAG IV SCH (02:03)
[2017-09-30] MEDS: SENOKOT S PO SCH ×2 (05:40→17:03)
[2017-09-30] MEDS: MOTRIN PO SCH ×3 (05:41→17:03)
[2017-09-30] MEDS ORDERED: M-M-R II VACCINE SUB-Q ONE (06:00)
[2017-09-30] MEDS ORDERED: BOOSTRIX IM ONE (06:00)
[2017-09-30 06:14] LABS: Hematocrit 16.4 % (30.3-42.9); Hemoglobin 5.2 gm/dl (10.1-14.3)
[2017-09-30] MEDS ORDERED: NACL 0.9% 500 ML 500 ML IV ONE (06:48)
[2017-09-30] MEDS ORDERED: TYLENOL PO ONE (06:49)
--- NOTE | 2017-09-30 06:52 | Event Note ---
Date: 09/30/17 (chronic anemia) pt's post delivery H&H 5.2/16.4 Pt is not syptomatic at this time. Consulted with Will order 2 units PRC
[2017-09-30 08:17] LABS: Hematocrit 17.1 % (30.3-42.9); Hemoglobin 5.4 gm/dl (10.1-14.3)
[2017-09-30] MEDS ORDERED: PRENATAL VITAMIN PO SCH (10:00)
[2017-09-30] MEDS ORDERED: NACL 0.9% 1000 ML 1,000 ML ONE (10:21)
--- NOTE | 2017-09-30 14:20 | Progress Note ---
Assessment and Plan - Patient Problems (1) Chronic anemia Current Visit: Yes Status: Acute Plan to address problem: Transfusion (2) Single live Current Visit: Yes Status: Acute (3) Spontaneous vaginal delivery Current Visit: Yes Status: Acute Subjective - Subjective Principal diagnosis: IUP @ 40 weeks with SROM Interval history: doing well has received on ly 1 unit of PRBC so far. Plan to check hematocrit after transfusion of second unit. Patient reports: appetite normal, voiding normally, pain well controlled, ambulating normally [place]: doing well Objective - Vital Signs Latest vital signs: Vital Signs Temp Pulse Resp BP BP Pulse Ox 09/30/17 12:53 98.2 F 81 18 113/68 98 09/30/17 12:23 98.4 F 72 18 114/73 99 09/30/17 12:22 98.4 F 72 20 114/73 09/30/17 11:08 98.1 F 91 H 18 114/75 98 09/30/17 10:53 98.1 F 78 18 108/74 98 09/30/17 10:48 98.0 F 79 18 108/75 98 09/30/17 10:43 98.3 F 77 18 109/73 98 09/30/17 10:39 98.1 F 98 H 18 106/75 98 09/30/17 10:12 18 09/30/17 08:50 97.9 F 88 20 101/73 09/30/17 06:41 20 09/30/17 04:30 98.6 F 78 18 102/67 09/30/17 00:38 20 09/30/17 00:30 98.6 F 72 16 114/76 09/29/17 23:38 20 09/29/17 20:30 98.6 F 70 16 103/67 09/29/17 19:07 18 09/29/17 18:06 81 110/74 09/29/17 17:36 100 H 98/66 09/29/17 17:00 69 18 149/69 09/29/17 16:57 69 149/69 09/29/17 16:45 68 18 110/67 09/29/17 16:41 68 110/67 09/29/17 16:30 73 18 110/70 09/29/17 16:26 73 110/70 09/29/17 16:15 81 18 109/70 100 09/29/17 16:11 81 109/70 09/29/17 16:06 93 H 92 09/29/17 16:05 92 H 100 09/29/17 16:00 76 18 105/65 100 09/29/17 15:59 81 93 09/29/17 15:56 76 105/65 09/29/17 15:55 86 100 09/29/17 15:50 79 100 09/29/17 15:45 98.3 F 78 18 104/70 99 09/29/17 15:41 78 104/70 09/29/17 15:40 78 99 09/29/17 15:32 96 H 104/66 09/29/17 15:17 134 H 102/68 09/29/17 15:16 118 H 100 09/29/17 15:03 102 H 100 09/29/17 15:02 102 H 100/63 09/29/17 14:57 90 100 09/29/17 14:53 74 100 09/29/17 14:50 80 110/62 09/29/17 14:48 83 91 09/29/17 14:32 68 105/64 09/29/17 14:30 18 Intake and Output 09/29/17 09/30/17 09/30/17 23:59 07:59 15:59 Intake Total 300 1000 360 Output Total 800 1203 400 Balance -500 -203 -40 Intake: Oral 400 360 Intake, Free Water 300 600 Blood Product 0 Leukoreduced Red Blood 0 Cells Unit [id number] Output: Urine 800 1200 400 Void 800 1200 400 Pad Count 3 Other: Total, Intake Amount 200 240 Total, Output Amount 800 600 400 # Voids Void 1 1 1 Weight 125 lb Estimated Blood Loss 300 - Exam Breasts: Present: deferred Abdomen: Present: normal appearance Uterus: Present: normal, firm Extremities: Present: normal - Labs Labs: Abnormal lab results 09/29/17 09/30/17 09/30/17 Range/Units 10:20 05:50 07:46 Hgb 5.2 L* 5.4 L* (10.1-14.3) gm/dl Hct 16.4 L* 17.1 L* (30.3-42.9) % Crossmatch See Detail
[2017-09-30 20:37] LABS: Hematocrit 23.6 % (30.3-42.9); Hemoglobin 7.6 gm/dl (10.1-14.3)
[2017-10-01] MEDS: MOTRIN PO SCH (00:03)
--- NOTE | 2017-10-01 07:53 | Discharge Summary ---
Providers - Providers Date of Admission: 09/29/17 10:00 Date of discharge: 10/01/17 (desires d/c home) Attending physician: BISMARK BAPTISTE Primary care physician: BISMARK BAPTISTE Hospitalization Reason for admission: labor Condition: Good Procedures: vaginal delivery Hospital course: uncomplicated vaginal , existing anemia requiring transfusion, course otherwise uncomplicated. Disposition: - TO HOME OR SELFCARE - Discharge Diagnoses (1) Chronic anemia Status: Acute (2) Spontaneous vaginal delivery Status: Acute Core Measure Documentation - Palliative Care Palliative Care/ Comfort Measures: Not Applicable - Core Measures Any of the following diagnoses?: none Exam - Constitutional Vitals: Temp Pulse Resp BP Pulse Ox 98.7 F 77 16 114/78 99 10/01/17 00:30 10/01/17 00:30 10/01/17 00:30 10/01/17 00:30 09/30/17 17:03 General appearance: Present: no acute distress, well-nourished - EENT Eyes: Present: PERRL ENT: hearing intact, clear oral mucosa - Neck Neck: Present: supple, normal ROM - Respiratory Respiratory effort: normal Respiratory: bilateral: CTA - Cardiovascular Rhythm: regular Heart Sounds: Present: S1 & S2. Absent: rub, click - Extremities Extremities: pulses symmetrical, No edema Peripheral Pulses: within normal limits - Abdominal General gastrointestinal: Present: soft, non-tender, non-distended, normal bowel sounds Female genitourinary: Present: normal - Integumentary Integumentary: Present: clear, warm, dry - Musculoskeletal Musculoskeletal: gait normal, strength equal bilaterally - Psychiatric Psychiatric: appropriate mood/affect, intact judgment & insight - Neurologic Neurologic: CNII-XII intact, moves all extremities - Additional findings Additional findings: Lochia scant, fundus firm, VSSAF, H&H increased to 7.6/23.6 after transfusion of 2 units RBCs, pt is asymptomatic. , requests depo prior to d/c home for contraception, plans of tubal ligation. Plan Activity: no restrictions, advance as tolerated Weight Bearing Status: Full Weight Bearing Diet: regular Follow up with: BISMARK BAPTISTE MD [Primary Care Provider] - 7 Days (Congratulations! Please call [phone] to schedule your son's circumcision in 1 week and your visit in 4 weeks. Bring EMLA cream to your son's appointment and await further teaching. Call for any questions or concerns.) Prescriptions: Ferrous Sulfate [Feosol 325 MG tab] 325 mg PO TID #90 tablet Ibuprofen [Motrin 800 MG tab] 800 mg PO Q8HR PRN #30 tablet PRN Reason: Pain Lidocain2.5%/Prilocai2.5% [Emla] 5 gm TP ONCE PRN #1 tube PRN Reason: Pain
[2017-10-01] MEDS ORDERED: DEPO-PROVERA (CONTRACEPTION) IM NR (08:00)
[2017-10-01 09:24] VITALS: BP 142/86
== END 2017-10-01 12:00 | disposition home or self-care (01) | DRG 775 ==
LOC: TRG 09:58 → LD 10:00 → OB 20:07
PROVIDERS: ADMIT Obstetrics & Gynecology; ATTEND Obstetrics & Gynecology
PROC: 10E0XZZ Delivery of Products of Conception, External Approach (ICD-10-PCS; principal; 2017-09-29)
PROC: 3E0S3BZ Introduction of Anesthetic Agent into Epidural Space, Percutaneous Approach (ICD-10-PCS; 2017-09-29)
PROC: 00HU33Z Insertion of Infusion Device into Spinal Canal, Percutaneous Approach (ICD-10-PCS; 2017-09-29)
PROC: 30233N1 Transfusion of Nonautologous Red Blood Cells into Peripheral Vein, Percutaneous Approach (ICD-10-PCS; 2017-09-30)
DX: O42.02 Full-term premature rupture of membranes, onset of labor within 24 hours of rupture (principal); O99.824 Streptococcus B carrier state complicating childbirth; O99.354 Diseases of the nervous system complicating childbirth; F31.9 Bipolar disorder, unspecified; O99.02 Anemia complicating childbirth; D64.9 Anemia, unspecified; Z37.0 Single live birth; Z3A.40 40 weeks gestation of pregnancy
CPT/HCPCS: 36415; 85014; 85018; 85027; 86592; 86850; 86900; 86901; 86920; 99211; A6250; G0463; J0290; J1050; J2590; J3010; J3105; J7030; J7120; P9016

== ENCOUNTER 2017-12-10 07:29 | Day surgery (SDC) | payer MEDICAID ==
[2017-12-09 09:59] LABS: Hematocrit 32.5 % (30.3-42.9); Hemoglobin 10.8 gm/dl (10.1-14.3); Mean Corpuscular HGB Conc 33 % (30-34); Mean Corpuscular Hemoglobin 27 pg (28-32); Mean Corpuscular Volume 80 fl (79-97); Platelet Count 177 K/mm3 (140-440); Red Blood Count 4.06 M/mm3 (3.65-5.03)
[2017-12-09 10:00] LABS: Red Cell Distribution Width 20.3 % (13.2-15.2)
[2017-12-09 10:46] LABS: Total Cells Counted 100
[2017-12-09 10:47] LABS: Anisocytosis 1+; Large Platelets Few; Platelet Estimate Cons
--- NOTE | 2017-12-09 12:38 | History and Physical Report ---
History of Present Illness Date of examination: 12/06/17 Date of admission: 12/10/2017 Chief complaint: wants btl via felshi clips History of present illness: Pt presents for btl. All risk, benefits, and alternatives were d/w pt and questions were addressed and answered. Consents signed and placed on the chart. Pt was given benefit of salpingectomy vs felshi clips and she desires to have the felshi clips applied. she was given ample time to ask questions all of which were addressed and answered. Past History Past Medical History: no pertinent history Past Surgical History: no surgical history MACHINE SET UP History: denies: abnormal PAP smear Family/Genetic History: none Social history: no significant social history, single - Obstetrical History : 5 Medications and Allergies Allergies Allergy/AdvReac Type Severity Reaction Status Date / Time No Known Allergies Allergy Verified 12/06/17 14:53 Home Medications Medication Instructions Recorded Confirmed Last Taken Type Ferrous Sulfate [Feosol 325 MG tab] 325 mg PO BID 12/06/17 12/06/17 Unknown History Active Meds: Active Medications Lactated Ringer's (Lactated Ringers) 1,000 mls @ 100 mls/hr IV DIRECT BETHEL Midazolam HCl (Versed) 2 mg IV PREOP NR Stop: 12/10/17 23:59 Review of Systems All systems: negative - Vital Signs Vital signs: Vital Signs Temp Pulse Resp BP 98.4 F 88 16 108/76 12/09/17 09:25 12/09/17 09:25 12/09/17 09:25 12/09/17 09:25 Temp Pulse Resp BP Pulse Ox 98.4 F 88 16 108/76 12/09/17 09:25 12/09/17 09:25 12/09/17 09:25 12/09/17 09:25 - Physical Exam Cardiovascular: Normal S1, Normal S2 Lungs: Positive: Clear to auscultation, Normal air movement Abdomen: Positive: normal appearance, soft. Negative: distention, tenderness, guarding Genitourinary (Female): Positive: other (deferred) Extremities: Positive: normal. Negative: tenderness, edema Deep Tendon Reflex Grade: Normal +2 Results Result Diagrams: 12/09/17 09:30 Abnormal lab results 12/09/17 Range/Units 09:30 MCH 27 L (28-32) pg RDW 20.3 H (13.2-15.2) % Eosinophils % (Manual) 5.0 H (0.0-4.3) % Basophils % (Manual) 2.0 H (0.0-1.8) % All other labs normal. Assessment and Plan - Patient Problems (1) Encounter for sterilization Status: Acute Plan to address problem: -admit and prepare for BTL -consents signed and placed on the chart
[~2017-12-10 07:29] MED LIST: ANCEF/STERILE WATER 2 GM/20 ML 2 GM/20 ML SYRINGE IV NR; LACTATED RINGERS 1,000 ML IV SCH; MARCAINE 0.5% 30 ML INFILTRATI ONE; MARCAINE 0.5% INFILTRATI ONE; NACL 0.9% IR ONE; VERSED IV NR
[2017-12-10] MEDS ORDERED: NACL BACTERIOSTATIC INFILTRATI ONE (08:22)
--- NOTE | 2017-12-10 08:32 | Anesthesia Consultation ---
Anesthesia Consult and Med Hx Date of service: 12/10/17 - Airway Anesthetic Teeth Evaluation: Good ROM Head & Neck: Adequate Mental/Hyoid Distance: Adequate Mallampati Class: Class I Intubation Access Assessment: Good - Pulmonary Exam CTA: Yes - Cardiac Exam Cardiac Exam: RRR - Pre-Operative Health Status ASA Pre-Surgery Classification: ASA2 Proposed Anesthetic Plan: General - Pulmonary Hx Asthma: No Hx Pneumonia: No Hx Sleep Apnea: No - Cardiovascular System Hx Hypertension: No - Central Nervous System Hx Seizures: No Hx Psychiatric Problems: No - Endocrine Hx Renal Disease: No Hx End Stage Renal Disease: No Hx Hypothyroidism: No Hx Hyperthyroidism: No - Hematic Hx Anemia: Yes Hx Sickle Cell Disease: No - Other Systems Hx Alcohol Use: No Hx Cancer: No
--- NOTE | 2017-12-10 08:33 | Anesthesia Day of Surgery ---
Anesthesia Day of Surgery - Day of Surgery Patient Examined: Yes Patient H&P Reviewed: Yes Patient is NPO: Yes
[2017-12-10] MEDS ORDERED: ANCEF/STERILE WATER 2 GM/20 ML 2 GM/20 ML SYRINGE IV NR (09:00)
[2017-12-10] MEDS ORDERED: ZEMURON IV ONE (09:37)
[2017-12-10] MEDS ORDERED: DIPRIVAN 10 MG/ML IV ONE (09:37)
[2017-12-10] MEDS ORDERED: QUELICIN ONE (09:37)
[2017-12-10] MEDS ORDERED: SUBLIMAZE ONE (09:37)
[2017-12-10] MEDS ORDERED: ZOFRAN ONE (09:37)
[2017-12-10] MEDS ORDERED: TORADOL ONE ×2 (10:25→11:24)
[2017-12-10] MEDS ORDERED: ROBINUL ONE (10:28)
[2017-12-10] MEDS ORDERED: NEOSTIGMINE ONE (10:28)
--- NOTE | 2017-12-10 10:42 | Operative Report ---
Operative Report Operative Report: Date of procedure: 12/10/2017 Pre-operative diagnosis: Desires permanent sterilization Post-operative diagnosis: Same Procedure name(s): Bilateral laparoscopic tubal ligation via placement of Filshie clips Surgeon: Dr. Merida Forklift Supervisor: RAMANA Anesthesia: Gen. endotracheal anesthesia EBL: Minimal Urine output: 100 mL Fluids: 700 mL Findings: Normal cervix and vagina. Grossly normal fallopian tubes and ovaries bilaterally. Small hematoma formed subcutaneously next to supraumbilical incision. Noted to be stable without expansion at the end of the procedure. Indications: Patient desires permanent sterilization. All risks benefits and alternatives were discussed with the patient. Patient was given ample time to ask questions all of which were addressed and answered. Consents were signed and placed on the chart. Procedure: Patient was taken to the operating room and which she was placed under general endotracheal anesthesia. Patient was then prepped and draped in sterile fashion and placed in dorsal lithotomy position in Allan stirrups. Patient underwent straight catheterization Attention was then turned to the vagina in which a Humi uterine manipulator was placed. . Attention was then turned to the umbilicus and which an infraumbilical incision was made with the scalpel 5mm trocar was placed using direct visualization with the camera. Abdomen was then insufflated with gas. Under direct visualization a second 8 mm trocar was placed. The Filshie clip domestic laundry worker with a Filshie clip was then placed through the 8 mm trocar. The Filshie clips were placed bilaterally on each fallopian tube without difficulty. Care was taken to be sure that the Filshie clips encompassed the entire fallopian tube. After tubal ligation was completed all instruments were removed from the abdomen under direct visualization. All gas was also released from the abdomen. The subcuticular fat was reapproximated with 2-0 Vicryl. The skin was approximated with 4-0 Monocryl in a subcuticular stitch. The patient tolerated procedure well. Sponge, lap, and needle counts were all correct x3 the patient was taken to the recovery room awake and in stable condition.
--- NOTE | 2017-12-10 10:42 | Short Stay Summary ---
Short Stay Documentation Date of service: 12/10/17 - History H&P: dictated Social history: no significant social history, single - Allergies and Medications Current Medications: Allergies No Known Allergies Allergy (Verified 12/06/17 14:53) ITCHING Home Medications Medication Instructions Recorded Confirmed Last Taken Type Ferrous Sulfate [Feosol 325 MG tab] 325 mg PO BID 12/06/17 12/10/17 12/09/17 History Active Medications Hydromorphone HCl (Dilaudid) 0.25 mg IV Q10MIN PRN PRN Reason: Pain, Moderate (4-6) Stop: 12/10/17 13:00 Lactated Ringer's (Lactated Ringers) 1,000 mls @ 100 mls/hr IV DIRECT BETHEL Last Admin: 12/10/17 08:35 Dose: 100 mls/hr Cefazolin Sodium (Ancef/Sterile Water 2 Gm/20 Ml) 2 gm in 20 mls @ 80 mls/hr IV PREOP NR; Protocol Stop: 12/10/17 11:00 Midazolam HCl (Versed) 2 mg IV PREOP NR Stop: 12/10/17 23:59 Last Admin: 12/10/17 09:04 Dose: 2 mg - Physical exam General appearance: no acute distress Lungs: Clear to auscultation Breasts: deferred Gastrointestinal: normal, normoactive bowel sounds Female Genitourinary: normal Extremities: no ischemia, pulses intact, No edema, Full ROM Neurological: Normal gait, Normal speech, Normal tone - Brief post op/procedure progress note Date of procedure: 12/10/17 Pre-op diagnosis: desires sterilization Post-op diagnosis: same Procedure: Laparoscopic bilateral tubal ligation via placement of Filshie clips Anesthesia: GETA Findings: See operative report Surgeon: ARLENE PINEDA Estimated blood loss: none Pathology: none Condition: stable - Hospital course Hospital course: Patient admitted for above-stated procedure. Procedure was not complicated. Patient will be discharged home once she admits discharge criteria in the PACU. Patient will follow-up in the office as scheduled appointment in 1 week discharge prescriptions Placed on the chart - Disposition Condition at discharge: Good Disposition: DC-01 TO HOME OR SELFCARE - Discharge Diagnoses (1) Encounter for sterilization Status: Acute Short Stay Discharge Plan Activity: no restrictions Diet: regular Wound: open to air, keep clean and dry Follow up with: BISMARK BAPTISTE MD [Primary Care Provider] - 7 Days ARLENE PINEDA MD [Staff Physician] - 7 Days Prescriptions: Ibuprofen 800 mg PO Q6HR #30 tablet oxyCODONE /ACETAMINOPHEN [Percocet 5/325] 1 tab PO Q4HR #30 tab
[2017-12-10] MEDS: DILAUDID IV PRN ×4 (11:00→11:31)
[2017-12-10] MEDS ORDERED: TORADOL IV NR (11:27)
[2017-12-10 11:42] VITALS: BP 114/79
[2017-12-10] MEDS ORDERED: PERCOCET 5/325 PO ONE (12:10)
--- NOTE | 2017-12-10 14:53 | Post Anesthesia Evaluation ---
- Post Anesthesia Evaluation Patient Participated: Yes Airway Patent: Yes Stable Respiratory Function: Yes Nausea/Vomiting: No Temp > 96.8F: Yes Pain Manageable: Yes Adequeate Hydration: Yes Anesthesia Complications: No
== END 2017-12-10 12:55 | disposition home or self-care (01) ==
LOC: OR 07:29
PROVIDERS: ATTEND Obstetrics & Gynecology
DX: Z30.2 Encounter for sterilization (principal); Z79.899 Other long term (current) drug therapy
CPT/HCPCS: 36415; 58671; 84703; 85007; 85025; J0330; J0690; J1170; J1885; J2250; J2405; J2704; J2710; J3010; J7120

== ENCOUNTER 2019-06-11 19:58 | Emergency (ER) | payer MEDICAID ==
--- NOTE | 2019-06-11 21:19 | Emergency Department Report ---
Blank Doc - Documentation Documentation: 28-year-old female that presents with neck pain. This initial assessment/diagnostic orders/clinical plan/treatment(s) is/are subject to change based on patient's health status, clinical progression and re- assessment by fellow clinical providers in the ED. Further treatment and workup at subsequent clinical providers discretion. Patient/guardians urged not to elope from the ED as their condition may be serious if not clinically assessed and managed. Initial orders include: 1- Patient sent to [facility] for further evaluation and treatment 2- xrays
[2019-06-11 21:21] VITALS: BP 112/68
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
[2019-06-11] MEDS ORDERED: KETOROLAC 30 MG/1 ML INJ IM ONE (22:34)
[2019-06-11] MEDS ORDERED: dexAMETHasone 20 MG/5 ML VIAL IM ONE (22:34)
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
== END 2019-06-11 23:35 | disposition home or self-care (01) ==
LOC: ED 19:58
DX: S16.1XXA Strain of muscle, fascia and tendon at neck level, initial encounter (principal); M54.9 Dorsalgia, unspecified; M25.511 Pain in right shoulder; G43.909 Migraine, unspecified, not intractable, without status migrainosus; F31.9 Bipolar disorder, unspecified; Z79.899 Other long term (current) drug therapy; X58.XXXA Exposure to other specified factors, initial encounter; Y93.89 Activity, other specified; Y92.89 Other specified places as the place of occurrence of the external cause; Y99.8 Other external cause status
CPT/HCPCS: 72040; 96372; 99283; J1100; J1885

== ENCOUNTER 2021-01-16 11:47 | Emergency (ER) | payer SELFPAY ==
[2021-01-16 12:35] VITALS: BP 98/70
[2021-01-16] MEDS ORDERED: LIDOCAINE-MPF (1%) 10 MG/1 ML VIAL 5 ML INFILTRATI ONE (13:03)
--- NOTE | 2021-01-16 13:05 | Emergency Department Report ---
ED Female HPI - General Chief complaint: Abdominal Pain Stated complaint: BACK PAINS /ABD PAINS Time Seen by Provider: 01/16/21 12:55 Source: patient Mode of arrival: Ambulatory Limitations: No Limitations - History of Present Illness Initial comments: 30-year-old female presents to the ER today with complaints of low abdominal pain. Patient states that symptoms started 1 week ago. She states that the pain has been intermittent and radiates into her lower back. She reports associated green vaginal discharge as well as urinary odor and urinary frequency but denies any dysuria or hematuria. Last menstrual cycle was December 30, 2020. She is not currently on any control. She states that she has had the same sexual partner for about a year but unprotected sexual intercourse. Patient states that she did have STD testing done about 2 months ago and was normal. She reports no other symptoms at this time. MD Complaint: vaginal discharge, pelvic pain, other (low back pain) -: week(s) (1) - Related Data Previous Rx's Medication Instructions Recorded Last Taken Type DOXYCYCLINE Hyclate [Vibramycin 100 mg PO Q12HR #14 capsule 01/16/21 Unknown Rx CAP] Ibuprofen [Motrin] 600 mg PO Q8H PRN #30 tablet 01/16/21 Unknown Rx Ondansetron [Zofran Odt] 4 mg PO Q8HR PRN #15 tab.rapdis 01/16/21 Unknown Rx metroNIDAZOLE [Flagyl] 500 mg PO Q12HR #14 tab 01/16/21 Unknown Rx Allergies Allergy/AdvReac Type Severity Reaction Status Date / Time No Known Allergies Allergy Verified 12/06/17 14:53 ED Review of Systems ROS: Stated complaint: BACK PAINS /ABD PAINS Other details as noted in HPI Comment: All other systems reviewed and negative Constitutional: denies: chills, fever Eyes: denies: eye pain, eye discharge, vision change ENT: denies: ear pain, throat pain, dental pain, hearing loss, epistaxis, congestion Respiratory: denies: cough, orthopnea, shortness of breath, SOB with exertion, SOB at rest, wheezing Cardiovascular: denies: chest pain, palpitations, dyspnea on exertion, edema, syncope, paroxysmal nocturnal dyspnea Gastrointestinal: abdominal pain. denies: nausea, vomiting, diarrhea, constipation, hematemesis, melena, hematochezia Genitourinary: frequency, discharge. denies: urgency, dysuria, hematuria, abnormal menses, dyspareunia Musculoskeletal: back pain. denies: joint swelling, arthralgia, myalgia Skin: denies: rash, lesions, change in color, change in hair/nails, pruritus Neurological: denies: headache, weakness, numbness, paresthesias, confusion, ab normal gait, vertigo Psychiatric: denies: anxiety, depression, auditory hallucinations, visual hallucinations, homicidal thoughts, suicidal thoughts Hematological/Lymphatic: denies: easy bleeding, easy bruising, swollen glands ED Past Medical Hx - Past Medical History Previous Medical History?: Yes Hx Hypertension: No Hx Congestive Heart Failure: No Hx Diabetes: No Hx Deep Vein Thrombosis: No Hx Renal Disease: No Hx Sickle Cell Disease: No Hx Headaches / Migraines: Yes (migraines) Hx Seizures: No Hx Psychiatric Treatment: Yes (bipolar) Hx Asthma: No Hx HIV: No Additional medical history: approx 18 weeks gest - Surgical History Past Surgical History?: No - Social History Smoking Status: Never Smoker Substance Use Type: None - Medications Home Medications: Home Medications Medication Instructions Recorded Confirmed Last Taken Type DOXYCYCLINE Hyclate [Vibramycin 100 mg PO Q12HR #14 capsule 01/16/21 Unknown Rx CAP] Ibuprofen [Motrin] 600 mg PO Q8H PRN #30 tablet 01/16/21 Unknown Rx Ondansetron [Zofran Odt] 4 mg PO Q8HR PRN #15 tab.rapdis 01/16/21 Unknown Rx metroNIDAZOLE [Flagyl] 500 mg PO Q12HR #14 tab 01/16/21 Unknown Rx ED Physical Exam - General Limitations: No Limitations General appearance: alert, in no apparent distress - Head Head exam: Present: atraumatic, normocephalic, normal inspection - Eye Eye exam: Present: normal appearance, PERRL, EOMI Pupils: Present: normal accommodation - ENT ENT exam: Present: normal exam, mucous membranes moist - Neck Neck exam: Present: normal inspection, full ROM - Respiratory Respiratory exam: Present: normal lung sounds bilaterally. Absent: respiratory distress - Cardiovascular Cardiovascular Exam: Present: regular rate, normal rhythm, normal heart sounds - GI/Abdominal GI/Abdominal exam: Present: soft. Absent: distended, tenderness, guarding, rebound - External exam: Present: normal external exam Speculum exam: Present: vaginal discharge (mod amt of green d/c), cervical discharge (green ). Absent: erythema, vaginal bleeding, foreign body, tissue, laceration Bi-manual exam: Present: adnexal tenderness (mild left and right adnexal tenderness). Absent: cervical motion tendernes - Neurological Exam Neurological exam: Present: alert, oriented X3, CN II-XII intact, normal gait - Psychiatric Psychiatric exam: Present: normal affect, normal mood - Skin Skin exam: Present: intact ED Course Vital Signs 01/16/21 12:33 Temperature 98.3 F Pulse Rate 75 Respiratory 18 Rate Blood Pressure 98/70 [Right] O2 Sat by Pulse 98 Oximetry ED Medical Decision Making - Medical Decision Making The patient is resting comfortably and is alert and in no distress. Patient exam is concerning for STD given the greenish discharge she had on pelvic exam. Wet prep is positive for BV and trichomonas. UA may related to a UTI of contamination from a vaginal discharge. Urine culture is pending. Discussed lab results with patient. She was given Rocephin prophylactically to treat for gonorrhea and she will be discharged home on Flagyl and doxycycline. The history, exam, diagnostic testing and current condition do not suggest acute appendicitis, bowel obstruction, acute cholecystitis, bowel perforation, major GI bleed, severe diverticulitis, severe PID, tubo-ovarian abscess, torsion, sepsis or other significant pathology to warrant further testing, continued ED treatment, admission or surgical evaluation at this point. The patient's vital signs have been stable. The patient does not have uncontrollable pain, intract able vomiting or other significant symptoms. The patient's condition is stable and appropriate for discharge from the emergency department. The patient will pursue further outpatient evaluation with the primary care physician or other designated or consulting physician as indicated in the discharge instructions. Critical care attestation.: If time is entered above; I have spent that time in minutes in the direct care of this critically ill patient, excluding procedure time. ED Disposition Clinical Impression: Bacterial vaginosis, Trichomonas vaginitis, Pelvic pain Disposition: TO HOME OR SELFCARE Is pt being admited?: No Does the pt Need Aspirin: No Condition: Stable Instructions: Pelvic Pain, Female, Bacterial Vaginosis, [id number], Trichomoniasis, Bacterial Vaginosis (ED), Abdominal Pain (ED) Additional Instructions: Recommend I take the Flagyl and the doxycycline as prescribed. Do not drink any alcohol while taking the Flagyl. Take the Zofran as needed to help with any nausea if it develops while taking antibiotics but eating good meals while taking antibiotics to also help. Take the Motrin as prescribed. Your partner should also get tested and treated. Recommend no sexual contact for 7 days after the treatment. Follow-up with [facility] listed on your discharge instructions. Return to the ER if your symptoms changes or worsens in any way. Prescriptions: metroNIDAZOLE [Flagyl] 500 mg PO Q12HR #14 tab Ibuprofen [Motrin] 600 mg PO Q8H PRN #30 tablet PRN Reason: Pain DOXYCYCLINE Hyclate [Vibramycin CAP] 100 mg PO Q12HR #14 capsule Ondansetron [Zofran Odt] 4 mg PO Q8HR PRN #15 tab.rapdis PRN Reason: Nausea Referrals: [facility] [Provider Group] - 3-5 Days Forms: STI Treatment and Prevention Time of Disposition: 14:29
[2021-01-16 13:38] LABS: HCG Qualitative,Urine Negative (Negative)
[2021-01-16 13:42] LABS: Bacteria,Urine 1+ /HPF (Negative); Bilirubin,Urine NEG (Negative); Blood,Urine NEG (Negative); Color,Urine Yellow (Yellow); Protein,Urine <15 mg/dL mg/dL (Negative); Urobilinogen,Urine < 2.0 mg/dL (<2.0)
== END 2021-01-16 16:22 | disposition home or self-care (01) ==
LOC: ED 11:47
DX: N76.0 Acute vaginitis (principal); B96.89 Other specified bacterial agents as the cause of diseases classified elsewhere; A59.01 Trichomonal vulvovaginitis; G43.909 Migraine, unspecified, not intractable, without status migrainosus; F31.9 Bipolar disorder, unspecified; Z79.899 Other long term (current) drug therapy
CPT/HCPCS: 81001; 81025; 87086; 87210; 87591; 96372; 99284; J0696